=== PATIENT | female | born 1970 | race Caucasian/White ===

== ENCOUNTER 2016-12-27 16:45 | Emergency (ER) | payer MEDICAID ==
[~2016-12-27] VITALS: Ht 172.7 cm; Wt 81.0 kg
[~2016-12-27 16:45] MED LIST: CLON-365 PO; FLUO40CA9 PO; LAMO100T5 PO; LEVO100T5 PO
[2016-12-27 16:58] VITALS: BP 101/66
[2016-12-27] MEDS ORDERED: BUPIVACAINE/PF 0.5% ONE (17:27)
[2016-12-27] MEDS ORDERED: BUPIVACAINE/PF-EPI 0.25% 1:200K SQ ONE (17:30)
[2016-12-27] MEDS ORDERED: CLON-365 PO (17:39)
[2016-12-27] MEDS ORDERED: TOPI50TA35 PO (17:39)
[2016-12-27] MEDS ORDERED: OXYC1TAB7 PO (17:39)
== END 2016-12-27 18:34 | disposition home or self-care (01) ==
LOC: ED 18:20
DX: K08.89 Other specified disorders of teeth and supporting structures (principal); R35.0 Frequency of micturition; E03.9 Hypothyroidism, unspecified; F17.200 Nicotine dependence, unspecified, uncomplicated; M54.9 Dorsalgia, unspecified; G89.29 Other chronic pain; Z90.49 Acquired absence of other specified parts of digestive tract; Z90.710 Acquired absence of both cervix and uterus
CPT/HCPCS: 64400; 81003; 82962

== ENCOUNTER 2017-04-06 14:46 | Emergency (ER) | payer MEDICAID ==
[~2017-04-06] VITALS: Ht 172.7 cm; Wt 80.3 kg
[~2017-04-06 14:46] MED LIST changes: +OXYC1TAB7 PO; +TOPI50TA35 PO
[2017-04-06] MEDS ORDERED: ONDANSETRON 2MG/ML, 2ML ONE (15:15)
[2017-04-06] MEDS ORDERED: KETOROLAC 30 MG/1 ML ONE (15:15)
[2017-04-06 15:26] LABS: HCG UR OBC PASS
[2017-04-06] MEDS ORDERED: SODIUM CHLORIDE 0.9% 1,000ML IVBOLUS ONE (15:30)
[2017-04-06] MEDS ORDERED: KETOROLAC 30 MG/1 ML IVPush ONE (15:30)
[2017-04-06] MEDS ORDERED: ONDANSETRON 2MG/ML, 2ML IVPush ONE (15:30)
[2017-04-06] MEDS ORDERED: SODIUM CHLORIDE FLUSH 10ML SYR IVF ONE (15:30)
[2017-04-06 15:31] LABS: BLOOD UREA NITROGEN 10 mg/dL (7-18)
[2017-04-06] MEDS ORDERED: OXYC10TA6 PO (15:33)
[2017-04-06] MEDS ORDERED: CEFTRIAXONE 250 MG IM ONE (17:00)
[2017-04-06] MEDS ORDERED: AZITHROMYCIN 500 MG TABLET PO ONE (17:00)
[2017-04-06 18:14] VITALS: BP 99/63
== END 2017-04-06 18:17 | disposition home or self-care (01) ==
LOC: ED 17:38
DX: N30.00 Acute cystitis without hematuria (principal); E03.9 Hypothyroidism, unspecified; Z90.710 Acquired absence of both cervix and uterus; Z90.49 Acquired absence of other specified parts of digestive tract
CPT/HCPCS: 36415; 74176; 80048; 81003; 81025; 82040; 83930; 84588; 85025; 96361; 96374; 96375; 99285; J1885; J2405; J7030

== ENCOUNTER 2017-04-30 09:45 | Emergency (ER) | payer MEDICAID ==
[~2017-04-30] VITALS: Ht 172.7 cm; Wt 79.2 kg
[~2017-04-30 09:45] MED LIST changes: +OXYC10TA6 PO
[2017-04-30] MEDS ORDERED: MORPHINE SULFATE 4 MG/ML, 1ML ONE ×2 (10:27→11:59)
[2017-04-30] MEDS ORDERED: KETOROLAC 30 MG/1 ML ONE (10:28)
[2017-04-30] MEDS ORDERED: ONDANSETRON 2MG/ML, 2ML ONE (10:28)
[2017-04-30] MEDS ORDERED: ONDANSETRON 2MG/ML, 2ML IVPush ONE (10:30)
[2017-04-30] MEDS ORDERED: SODIUM CHLORIDE FLUSH 10ML SYR IVF ONE (10:30)
[2017-04-30] MEDS ORDERED: KETOROLAC 30 MG/1 ML IVPush ONE (10:30)
[2017-04-30] MEDS: MORPHINE SULFATE 4 MG/ML, 1ML IVPush PRN ×2 (10:50→12:11)
[2017-04-30 10:52] LABS: ASPARTATE AMINO TRANSFERASE 21 U/L (15-37); BLOOD UREA NITROGEN 14 mg/dL (7-18)
[2017-04-30] MEDS ORDERED: OXYcodone/APAP 5/325MG TABLET ONE (14:38)
[2017-04-30] MEDS ORDERED: OXYcodone/APAP 5/325MG TABLET PO ONE (15:00)
[2017-04-30 15:13] VITALS: BP 102/55
== END 2017-04-30 15:15 | disposition home or self-care (01) ==
LOC: ED 10:48
DX: M51.26 Other intervertebral disc displacement, lumbar region (principal); R35.0 Frequency of micturition; E03.9 Hypothyroidism, unspecified; F17.200 Nicotine dependence, unspecified, uncomplicated; Z90.49 Acquired absence of other specified parts of digestive tract; Z90.710 Acquired absence of both cervix and uterus
CPT/HCPCS: 36415; 72146; 72148; 80053; 81003; 83690; 85025; 96374; 96375; 96376; 99285; J1885; J2405

== ENCOUNTER 2017-09-19 15:05 | Emergency (ER) | payer MEDICAID ==
[~2017-09-19] VITALS: Ht 172.7 cm; Wt 79.3 kg
[2017-09-19] MEDS ORDERED: SODIUM CHLORIDE FLUSH 10ML SYR IVF ONE (16:00)
[2017-09-19 16:19] LABS: HEMATOCRIT 44.3 % (34.6-47.8); HEMOGLOBIN 14.6 g/dL (11.7-16.4); WHITE BLOOD COUNT 6.7 x10^3/uL (3.4-10)
[2017-09-19 16:26] LABS: BLOOD UREA NITROGEN 11 mg/dL (7-18)
[2017-09-19 16:28] LABS: ASPARTATE AMINO TRANSFERASE 28 U/L (15-37)
[2017-09-19] MEDS ORDERED: KETOROLAC 30 MG/1 ML ONE (16:28)
[2017-09-19] MEDS ORDERED: HYDROmorphone 2 MG/ML, 1ML ONE (16:28)
[2017-09-19] MEDS ORDERED: HYDROmorphone 1 MG/ML, 1ML IM ONE (16:30)
[2017-09-19] MEDS ORDERED: KETOROLAC 30 MG/1 ML IM ONE (16:30)
[2017-09-19] MEDS ORDERED: MORP-52 PO (16:38)
[2017-09-19 17:37] VITALS: BP 113/65
== END 2017-09-19 19:13 | disposition home or self-care (01) ==
LOC: ED 17:56
DX: R10.2 Pelvic and perineal pain (principal); E03.9 Hypothyroidism, unspecified; Z90.49 Acquired absence of other specified parts of digestive tract; Z90.710 Acquired absence of both cervix and uterus
CPT/HCPCS: 36415; 80053; 81003; 85025; 93005; 96372; 99285; J1170; J1885

== ENCOUNTER 2018-06-17 18:37 | Emergency (ER) | payer MEDICARE, MEDICAID ==
[~2018-06-17] VITALS: Ht 172.7 cm; Wt 75.0 kg
[~2018-06-17 18:37] MED LIST changes: -CLON-365 PO; +CLON1TAB4 PO; +MORP-52 PO
[2018-06-17 19:24] LABS: BASOPHILS # (AUTO) 0.04 x10^3/uL (0-0.1); BASOPHILS % (AUTO) 0 % (0-1); EOSINOPHILS # (AUTO) 0.05 x10^3/uL (0-0.4); EOSINOPHILS % (AUTO) 0 % (1-7); LYMPHOCYTES # (AUTO) 3.03 x10^3/uL (1-3.4); LYMPHOCYTES % (AUTO) 24 % (22-44); MD NO; MEAN CORPUSCULAR HEMOGLOBIN 30.4 pg (27.0-34.8); MEAN CORPUSCULAR VOLUME 89.3 fL (80-100); MEAN PLATELET VOLUME 8.1 fL (7.4-10.4); MONOCYTES # (AUTO) 0.74 x10^3/uL (0.2-0.8); MONOCYTES % (AUTO) 6 % (2-9); NEUTROPHILS # (AUTO) 8.64 x10^3/uL (1.8-6.8); NEUTROPHILS % (AUTO) 69 % (42-75); PLATELET COUNT 244 x10^3/uL (130-400)
[2018-06-17] MEDS ORDERED: MORPHINE SULFATE 4 MG/ML, 1ML ONE (19:25)
[2018-06-17] MEDS ORDERED: ONDANSETRON ODT 4 MG ONE (19:25)
[2018-06-17] MEDS ORDERED: ONDANSETRON ODT 4 MG PO ONE (19:30)
[2018-06-17] MEDS ORDERED: MORPHINE SULFATE 4 MG/ML, 1ML IVPush PRN (19:30)
[2018-06-17 19:31] LABS: INTERNATIONAL NORMALIZED RATIO 0.92 (0.93-1.1); PROTHROMBIN TIME 9.6 Seconds (9.6-11.5)
[2018-06-17 19:33] LABS: ALBUMIN 3.6 g/dL (3.4-5.0); ANION GAP 10 mmol/L (5-15); C-REACTIVE PROTEIN, QUANT 0.11 mg/dL (0.02-0.49); CALCIUM 8.2 mg/dL (8.5-10.1); CHLORIDE 108 mmol/L (98-107); CREATININE 0.91 mg/dL (0.55-1.02)
[2018-06-17] MEDS ORDERED: HYDROmorphone 2 MG/ML, 1ML ONE (20:09)
[2018-06-17] MEDS ORDERED: HYDROmorphone 1 MG/ML, 1ML IM ONE (20:30)
[2018-06-17] MEDS ORDERED: GADOBUTROL 7.5 MMOL/7.5 ML VIAL ONE (21:09)
[2018-06-17 21:24] VITALS: BP 121/72
[2018-06-17] MEDS ORDERED: LIDODERM 5% PATCH TD ONE (22:00)
== END 2018-06-17 22:42 | disposition home or self-care (01) ==
LOC: ED 19:18
DX: M54.6 Pain in thoracic spine (principal); E03.9 Hypothyroidism, unspecified; Z90.49 Acquired absence of other specified parts of digestive tract; Z90.710 Acquired absence of both cervix and uterus; F17.200 Nicotine dependence, unspecified, uncomplicated; R79.1 Abnormal coagulation profile
CPT/HCPCS: 36415; 71045; 72157; 80048; 82040; 85025; 85610; 85651; 86140; 96372; 96374; 99285; A9585; J1170; Q0162

== ENCOUNTER 2018-11-13 18:59 | Emergency (ER) | payer MEDICARE, MEDICAID ==
[~2018-11-13] VITALS: Ht 172.7 cm; Wt 76.0 kg
[~2018-11-13 18:59] MED LIST changes: +CLON1TAB11 PO; -CLON1TAB4 PO
[2018-11-13 19:04] VITALS: BP 101/70
[2018-11-13] MEDS ORDERED: ALBUTEROL/IPRATROPIUM 2.5MG/0.5MG, 3 ML ONE (19:24)
[2018-11-13] MEDS ORDERED: ALBUTEROL/IPRATROPIUM 2.5MG/0.5MG, 3 ML NPPB ONE (19:30)
== END 2018-11-13 20:16 | disposition home or self-care (01) ==
LOC: ED 19:45
DX: J20.9 Acute bronchitis, unspecified (principal); E03.9 Hypothyroidism, unspecified
CPT/HCPCS: 71046; 94640; 99283; J7512; J7620

== ENCOUNTER 2018-11-20 10:37 | Emergency (ER) | payer MEDICARE, MEDICAID ==
[~2018-11-20] VITALS: Ht 172.7 cm; Wt 77.7 kg
[2018-11-20 10:42] VITALS: BP 124/82
--- NOTE | 2018-11-20 11:47 | NUR ---
Patient/Caregiver given discharge instructions and they have confirmed that they understand the instructions. Patient ambulatory with steady gait.
== END 2018-11-20 11:51 | disposition home or self-care (01) ==
LOC: ED 11:33
DX: J06.9 Acute upper respiratory infection, unspecified (principal); E03.9 Hypothyroidism, unspecified; M54.9 Dorsalgia, unspecified; G89.29 Other chronic pain; Z90.49 Acquired absence of other specified parts of digestive tract; Z90.710 Acquired absence of both cervix and uterus
CPT/HCPCS: 70360; 93005; 99283